=== PATIENT | female | born 1970 | race Two or more races ===

== ENCOUNTER 2020-12-08 05:11 | Day surgery (SDC) | payer OTHER ==
[2020-12-08 07:26] VITALS: BMI 37.4
[2020-12-08 09:23] VITALS: BP 131/89; PULSE 91; TEMP 98
== END 2020-12-08 09:30 | disposition home or self-care (01) ==
LOC: JASU-ENDO 05:11
PROVIDERS: ATTEND Internal Medicine Gastroenterology
PROC: 0DB68ZX Excision of Stomach, Via Natural or Artificial Opening Endoscopic, Diagnostic (ICD-10-PCS; 2020-12-08)
PROC: 0DJD8ZZ Inspection of Lower Intestinal Tract, Via Natural or Artificial Opening Endoscopic (ICD-10-PCS; principal; 2020-12-08 08:00)
DX: Z12.11 Encounter for screening for malignant neoplasm of colon (principal); K29.50 Unspecified chronic gastritis without bleeding; B96.81 Helicobacter pylori [H. pylori] as the cause of diseases classified elsewhere; I10 Essential (primary) hypertension; E11.9 Type 2 diabetes mellitus without complications
CPT/HCPCS: 43239; G0121; 88305-TC; 88342-TC

== ENCOUNTER 2021-01-05 05:08 | Day surgery (SDC) | payer OTHER ==
[2021-01-05 07:35] VITALS: BMI 35.2
[2021-01-05] MEDS ORDERED: MIDAZOLAM HCL 2 MG/2 ML SINGLE DOSE VIAL ONE (07:35)
[2021-01-05 08:11] VITALS: TEMP 97.3
[2021-01-05 08:46] VITALS: BP 119/80; PULSE 83
== END 2021-01-05 09:14 | disposition home or self-care (01) ==
LOC: JASU-ENDO 05:08
PROVIDERS: ATTEND Internal Medicine Gastroenterology
PROC: 0DB78ZX Excision of Stomach, Pylorus, Via Natural or Artificial Opening Endoscopic, Diagnostic (ICD-10-PCS; 2021-01-05)
PROC: 3E0G8GC Introduction of Other Therapeutic Substance into Upper GI, Via Natural or Artificial Opening Endoscopic (ICD-10-PCS; principal; 2021-01-05 08:00)
DX: D13.1 Benign neoplasm of stomach (principal); B96.81 Helicobacter pylori [H. pylori] as the cause of diseases classified elsewhere; I10 Essential (primary) hypertension
CPT/HCPCS: 81025; 88305-TC; 88342-TC

== ENCOUNTER 2023-01-03 04:41 | Day surgery (SDC) | payer OTHER ==
[2023-01-01 13:27] VITALS: BMI 36.3
[2023-01-03 10:26] VITALS: RESP 18; TEMP 98.5
[2023-01-03 10:58] VITALS: BP 108/68; PULSE 65
== END 2023-01-03 11:01 | disposition home or self-care (01) ==
LOC: JASU-ENDO 04:41
PROVIDERS: ATTEND Internal Medicine Gastroenterology
PROC: 0DB78ZX Excision of Stomach, Pylorus, Via Natural or Artificial Opening Endoscopic, Diagnostic (ICD-10-PCS; 2023-01-03)
PROC: 0DB68ZX Excision of Stomach, Via Natural or Artificial Opening Endoscopic, Diagnostic (ICD-10-PCS; principal; 2023-01-03 10:30)
DX: K29.50 Unspecified chronic gastritis without bleeding (principal); K31.A11 Gastric intestinal metaplasia without dysplasia, involving the antrum; I10 Essential (primary) hypertension; E11.9 Type 2 diabetes mellitus without complications; Z79.85 Long-term (current) use of injectable non-insulin antidiabetic drugs
CPT/HCPCS: 81025; 82962; 88305-TC; 88342-TC